=== PATIENT | female | born 1940 | race Caucasian/White ===

== ENCOUNTER → 2022-08-05 | Outpatient (CLI) | payer MEDICARE, BC ==
[2022-08-05 19:52] LABS: INR 2.21 (0.90-1.11); Prothrombin Time 24.2 sec (9.9-11.9)
== END | disposition home or self-care (01) ==
LOC: LABWHC1 11:24
DX: I48.91 Unspecified atrial fibrillation (principal)
CPT/HCPCS: 36415; 85610